=== PATIENT | male | born 1940 | race Caucasian/White ===

== ENCOUNTER → 2020-03-26 08:45 | Outpatient (CLI) | payer OTHER ==
[2020-03-26 09:22] LABS: BASOPHILS 0.2 % (0-2); EOSINOPHILS 2.4 % (0-7); HEMATOCRIT 38.6 % (42.0-54.0); HEMOGLOBIN 12.6 g/dL (13.5-17.5); IMMATURE GRANULOCYTES 0.2 % (0-5); LYMPHOCYTES 41.3 % (15-50); MCH 31.3 pg (26.0-34.0); MCHC 32.6 g/dL (31.0-37.0); MCV 95.8 fL (80.0-100.0); MEAN PLATELET VOLUME 9.7 fL (7.4-10.4); MONOCYTES 11.1 % (2-11); NEUTROPHILS 44.8 % (40-80); PLATELET COUNT 95 10x3/uL (130-400); RBC 4.03 10x6/uL (4.20-6.10); RDW 14.2 % (11.5-14.5); WBC 4.5 10x3/uL (4.8-10.8)
== END | disposition home or self-care (01) ==
LOC: D.LAB 08:45
PROVIDERS: ATTEND Orthopaedic Surgery
DX: C85.90 Non-Hodgkin lymphoma, unspecified, unspecified site (principal)